=== PATIENT | female | born 1945 | race Caucasian/White ===

== ENCOUNTER 2017-10-04 19:08 | Emergency (ER) | payer MEDICARE, SELFPAY ==
[2017-10-04] MEDS ORDERED: LIDOCAINE-MPF 2% ,5ML ONE (19:29)
[2017-10-04] MEDS ORDERED: OXYMETAZOLINE NASAL SPRAY 0.05%, 15ML ONE (19:30)
[2017-10-04] MEDS ORDERED: BACITRACIN ZINC OINT 500U/GM, 0.9 GM ONE (19:30)
[2017-10-04] MEDS ORDERED: SILVER NITRATE STICK TP ONE (19:30)
[2017-10-04] MEDS ORDERED: OXYMETAZOLINE NASAL SPRAY 0.05%, 15ML NAS ONE (19:30)
[2017-10-04 20:05] VITALS: BP 150/93
== END 2017-10-04 21:03 | disposition home or self-care (01) ==
LOC: ED 20:25
DX: R04.0 Epistaxis (principal); I10 Essential (primary) hypertension; F17.200 Nicotine dependence, unspecified, uncomplicated
CPT/HCPCS: 30901; 99284

== ENCOUNTER 2018-09-07 18:57 | Emergency (ER) | payer MEDICARE ==
[~2018-09-07] VITALS: Ht 160 cm; Wt 74.4 kg
[2018-09-07 18:59] VITALS: BP 140/84
[2018-09-07] MEDS ORDERED: OXYMETAZOLINE NASAL SPRAY 0.05%, 15ML NAS ONE (19:30)
== END 2018-09-07 21:01 | disposition home or self-care (01) ==
LOC: ED 21:00
DX: R04.0 Epistaxis (principal); I10 Essential (primary) hypertension; F17.210 Nicotine dependence, cigarettes, uncomplicated; Z86.73 Personal history of transient ischemic attack (TIA), and cerebral infarction without residual deficits
CPT/HCPCS: 99281